=== PATIENT | female | born 2000 | race African-American/Black ===

== ENCOUNTER 2018-06-11 17:21 | Emergency (ER) | payer MEDICAID ==
[~2018-06-11] VITALS: Ht 157.5 cm; Wt 57.0 kg
[2018-06-11 19:28] LABS: CLARITY URINE CLOUDY (CLEAR); COLOR URINE YELLOW (YELLOW); KETONES URINE NEGATIVE (NEGATIVE); LEUKOCYTE ESTERASE URINE 2+ (NEGATIVE); NITRITE URINE NEGATIVE (NEGATIVE); OCCULT BLOOD URINE NEGATIVE (NEGATIVE); PH URINE 7.5 (4.5-8.0); PROTEIN URINE NEGATIVE (NEGATIVE); SPECIFIC GRAVITY URINE 1.017 (1.005-1.030); UROBILINOGEN URINE 0.2 E.U./dL (0.2-1.0)
[2018-06-11 20:21] LABS: BASOPHILS % 0.3 % (0.0-2.0); EOSINOPHILS % 0.6 % (0.0-5.0); HEMATOCRIT. 37.3 % (36.0-48.0); HEMOGLOBIN. 12.2 g/dL (12.0-16.0); LYMPHOCYTES % 17.7 % (20.0-50.0); MEAN CORPUSCULAR HEMOGLOBIN 30.1 pg (28.0-32.0); MEAN CORPUSCULAR VOLUME 92.1 fL (81.0-99.0); NEUTROPHILS % 74.4 % (40.0-76.0); PLATELET 274 x1000/uL (130-400); RED BLOOD CELL COUNT 4.05 mill/uL (4.2-5.4); RED CELL DISTRIBUTION WIDTH 14.8 % (11.6-14.6)
[2018-06-11 20:26] LABS: CHLORIDE 104 mEq/L (98-107); PROTHROMBIN TIME 10.3 sec (9.1-11.1)
[2018-06-11 20:31] LABS: HCG SCREEN NEGATIVE
[2018-06-11] MEDS ORDERED: LIDOCAINE HCL 1% 20ML VIAL (Pyxis) INJ INFIL ONE (20:45)
[2018-06-11] MEDS ORDERED: CEFTRIAXONE SODIUM 1 G/VIAL IM ONE (20:45)
[2018-06-11] MEDS ORDERED: LIDOCAINE HCL 1% 10 MG/ML 10ML VIAL IJ NR (21:00)
[2018-06-11 21:41] VITALS: BP 111/74
== END 2018-06-11 21:43 | disposition home or self-care (01) ==
LOC: ER 17:21
DX: N10 Acute pyelonephritis (principal); F12.10 Cannabis abuse, uncomplicated
CPT/HCPCS: 36415; 76705; 80053; 81003; 81025; 83605; 83690; 84703; 85025; 85610; 96372; 99285; J0696; J3490; Z7610; A4315